=== PATIENT | female | born 1950 | race Caucasian/White ===

== ENCOUNTER 2018-06-04 17:32 | Emergency (ER) | payer MEDICARE, OTHER, SELFPAY ==
[2018-06-04 17:44] VITALS: BP 126/79; PULSE 65; RESP 18; O2SAT 97; BMI 29.7
--- NOTE | 2018-06-04 19:14 | ED.WOUNDLAC ---
HPI - Wound/Laceration General Chief Complaint: Wound/Laceration Stated Complaint: PAIN IN INCISION SITE Time Seen by Provider: 06/04/18 18:38 Source: patient Mode of arrival: ambulatory Limitations: no limitations History of Present Illness HPI narrative: Patient is a 67-year-old female. 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 Post resection performed at [facility]. Currently undergoing chemotherapy. Patient states that she has been diagnosed with a seroma in the surgical area. She states that it has been ?drained? multiple times in the past. She is here because on Tuesday she is noticed pain which is sharp in nature and redness over her right inguinal area. No fevers. States that has worsened since then. No urinary symptoms. No vaginal bleeding. No change of bowel habits. No abdominal pain. Patient came to the emergency department for evaluation. Related Data Home Medications Medication Instructions Recorded Confirmed diltiazem HCl #0 05/22/17 04/12/18 rivaroxaban [Xarelto] #0 05/22/17 04/12/18 Previous Rx's Medication Instructions Recorded estradiol 0.01% (0.1 mg/gram) See Label Instructions .ROUTE 04/14/18 vaginal cream DAILY #42.5 gram cephalexin [Keflex] 500 mg PO QID 10 Days #40 cap 06/04/18 fluconazole [Diflucan] 100 mg PO DAILY #2 tab 06/04/18 Allergies Allergy/AdvReac Type Severity Reaction Status Date / Time aspirin [ASPIRIN] Allergy Mild hives Verified 06/04/18 17:44 codeine [CODEINE] Allergy Mild hives Verified 06/04/18 17:44 Sulfa (Sulfonamide Allergy Mild hives Verified 06/04/18 17:44 Antibiotics) [SULFA (SULFONAMIDE ANTIBIOTICS)] Review of Systems Constitutional Denies chills, Denies fatigue, Denies fever(s), Denies lethargy, Denies malaise and Denies weakness ENT Ears, Nose, Mouth, and Throat: Denies vertigo and Denies dizziness Cardiovascular Denies chest pain and Denies dyspnea Respiratory Denies dyspnea Gastrointestinal Gastrointestinal: Denies abdominal pain, Denies nausea and Denies vomiting Genitourinary Denies dysuria, Denies flank pain and Denies vaginal discharge Comments: Redness of the skin of the right inguinal region Musculoskeletal Denies back pain, Denies myalgias and Denies arthralgias Integumentary/Breasts Comments: Redness the skin of the right inguinal region Neurologic Denies vertigo, Denies dizziness and Denies weakness Endocrine Denies fatigue Hematologic/Lymphatic Denies easy bleeding and Denies easy bruising [facility] Medical History Squamous cell carcinoma (Acute) Surgical History History of melanoma excision (Resolved) History of tonsillectomy (Resolved) Status post cholecystectomy (Resolved) Status post surgery (Resolved 11/01/17) Social History Smoking Status: Former smoker Exam Initial Vital Signs Initial Vital Signs: Vital Signs Pulse Rate 65 06/04/18 17:44 Respiratory Rate 18 06/04/18 17:44 Blood Pressure 126/79 06/04/18 17:44 Pulse Oximetry 97 06/04/18 17:44 Const General: cooperative, healthy appearing, comfortable, well developed, well groomed, No acute distress, No frail appearing and No ill appearing Orientation: alert, awake and oriented x3 Resp Effort & Inspection: normal respiratory effort Cardio Rate: regular rate Skin Other: Patient with a approximately 15 cm area of erythema in the right inguinal region. Does involve the right labia. Does not extend above the ASIS. No blisters. No vesicles. No pustules. No lacerations. Neuro General: alert, awake and oriented x3 Extrem General: normal to inspection, full ROM and capillary refill normal Psych Appearance: grossly normal and well kempt Course Orders Ordered: ED Orders 06/04/18 19:55 Basic Metabolic Panel Stat C-Reactive Protein Quant Stat Complete Blood Count AUTO DIFF Stat Erythrocyte Sedimentation Rate Stat Lactate (Lactic Acid) Stat Procalcitonin Stat 06/04/18 20:55 Blood Culture Stat Discontinued Medications Acetaminophen (Tylenol) 650 mg PO NOW ONE Stop: 06/04/18 21:05 Last Admin: 06/04/18 21:06 Dose: 650 mg Cephalexin HCl (Keflex) 500 mg PO NOW ONE Stop: 06/04/18 20:42 Last Admin: 06/04/18 21:06 Dose: 500 mg Vital Signs - 8 hr 06/04/18 17:44 06/04/18 19:59 06/04/18 21:24 Pulse Rate 65 78 68 Respiratory Rate 18 15 18 Blood Pressure 126/79 120/77 Blood Pressure [Right Arm] 124/76 Pulse Oximetry 97 98 97 MDM - Wound/Laceration Medical Records Attestation: I reviewed the patient's medical records. Lab Data Attestation: I reviewed the patient's lab results. Result diagrams: 06/04/18 19:55 06/04/18 19:55 Lab Results 06/04/18 06/04/18 06/04/18 Range/Units 19:55 19:55 19:55 WBC 3.8 L (4.5-11.0) X10^3/uL RBC 4.16 (4.0-5.2) X10^6/uL Hgb 12.9 (12.0-16.0) g/dL Hct 38.1 (36-46) % MCV 91.6 (80-100) fL MCH 31.0 (26-34) PG MCHC 33.8 (30-36) % RDW 12.6 (11.6-14.8) % Plt Count 223 (150-400) X10^3/uL Neut % (Auto) 76.0 H (50-75) % Lymph % (Auto) 16.4 L (25-40) % Blair % (Auto) 5.2 (3-14) % Eos % (Auto) 1.7 L (2-4) % Baso % (Auto) 0.7 (0-2) % Neut # (Auto) 2900 L (8277-1181) /uL ESR (0-20) MM/HR Sodium 141 (137-145) mmol/L Potassium 3.9 (3.4-5.1) mmol/L Chloride 101 (98-107) mmol/L Carbon Dioxide 30 (22-32) mmol/L BUN 12 (7-17) mg/dL Creatinine 0.70 (0.52-1.04) mg/dL Estimated GFR > 60.0 (>60) mL/min BUN/Creatinine Ratio 17.1 (6-22) Glucose 101 (80-110) mg/dL Lactate 0.9 (0.7-2.1) mmol/L Calcium 9.3 (8.4-10.2) mg/dL C-Reactive Protein (<1.0) mg/dL Procalcitonin (<0.5) ng/mL 06/04/18 06/04/18 06/04/18 Range/Units 19:55 19:55 19:55 WBC (4.5-11.0) X10^3/uL RBC (4.0-5.2) X10^6/uL Hgb (12.0-16.0) g/dL Hct (36-46) % MCV (80-100) fL MCH (26-34) PG MCHC (30-36) % RDW (11.6-14.8) % Plt Count (150-400) X10^3/uL Neut % (Auto) (50-75) % Lymph % (Auto) (25-40) % Blair % (Auto) (3-14) % Eos % (Auto) (2-4) % Baso % (Auto) (0-2) % Neut # (Auto) (7026-0639) /uL ESR 56 H (0-20) MM/HR Sodium (137-145) mmol/L Potassium (3.4-5.1) mmol/L Chloride (98-107) mmol/L Carbon Dioxide (22-32) mmol/L BUN (7-17) mg/dL Creatinine (0.52-1.04) mg/dL Estimated GFR (>60) mL/min BUN/Creatinine Ratio (6-22) Glucose (80-110) mg/dL Lactate (0.7-2.1) mmol/L Calcium (8.4-10.2) mg/dL C-Reactive Protein 3.5 H (<1.0) mg/dL Procalcitonin < 0.05 (<0.5) ng/mL MDM Narrative Medical decision making narrative: Patient is nontoxic appearing. Is not neutropenic. Is afebrile. Does have an area what appears to be cellulitis in her right inguinal region. I discussed the case with Dr. Clayton regional facilities manager for Oncology at [facility]. He states that since the patient looks well, is not neutropenic, is afebrile that a trial of oral Keflex is warranted in this situation. Patient was given her 1st dose of Keflex here in the emergency department. She was given a prescription for this to start taking tomorrow morning. She was informed that she needed to contact her oncologist tomorrow for a follow-up. I feel that there is no abscess involved. I feel that the fluctuance under the area of erythema is the seroma which is known to exist. Will hold on incision and drainage for now. Patient was given return precautions. She expressed understanding and agreement with plan. Discharge Plan Departure Patient Disposition: Home Clinical Impression: Cellulitis Discharge Date/Time: 06/04/18 21:24 Interventions: ED Discharge Assessment Last Done: 06/04/18 21:24 Instructions: DI for Cellulitis -- Adult Activity Restrictions/Additional Instructions: You were given your 1st dose of antibiotics here in the emergency department. Your next dose will be tomorrow morning. Tomorrow morning you do need to contact your oncologist office to schedule a follow-up appointment. Return to the emergency department for any new symptoms, worsening symptoms, fever or any other concerning symptoms. Prescriptions: New fluconazole [Diflucan] 100 mg tablet 100 mg PO DAILY Qty: 2 RF: 0 cephalexin [Keflex] 500 mg capsule 500 mg PO QID 10 Days Qty: 40 RF: 0 No Action diltiazem HCl 30 mg Tablet Qty: 0 RF: 0 rivaroxaban [Xarelto] 10 mg Tablet Qty: 0 RF: 0 estradiol [Estrace] 0.01 % (0.1 mg/gram) cream See Label Instructions .ROUTE DAILY Qty: 42.5 RF: 1
[2018-06-04 19:59] VITALS: BP 124/76; PULSE 78; RESP 15; O2SAT 98
[2018-06-04 20:12] LABS: Add Manual Diff / Slide Review NO; Basophils Percent Auto 0.7 % (0-2); Eosinophils Percent Auto 1.7 % (2-4); Hematocrit 38.1 % (36-46); Hemoglobin 12.9 g/dL (12.0-16.0); Lymphocytes Percent Auto 16.4 % (25-40); Mean Corpuscular HGB Conc 33.8 % (30-36); Mean Corpuscular Volume 91.6 fL (80-100); Monocytes Percent Auto 5.2 % (3-14); Neutrophils Absolute Auto 2900 /uL (3000-5900); Platelet Count 223 X10^3/uL (150-400); Red Blood Cell Count 4.16 X10^6/uL (4.0-5.2); Red Cell Distribution Width 12.6 % (11.6-14.8); White Blood Cell Count 3.8 X10^3/uL (4.5-11.0)
[2018-06-04 20:22] LABS: Lactate (Lactic Acid) 0.9 mmol/L (0.7-2.1)
[2018-06-04 20:23] LABS: BUN Creatinine Ratio 17.1 (6-22); Blood Urea Nitrogen 12 mg/dL (7-17); Calcium 9.3 mg/dL (8.4-10.2); Carbon Dioxide 30 mmol/L (22-32); Chloride 101 mmol/L (98-107); Estimated Glomerular Filt Rate > 60.0 mL/min (>60); Glucose 101 mg/dL (80-110); HEMOLYSIS < 15 (0-50); Potassium 3.9 mmol/L (3.4-5.1); Sodium 141 mmol/L (137-145)
[2018-06-04 20:37] LABS: C-Reactive Protein Quant 3.5 mg/dL (<1.0)
--- NOTE | 2018-06-04 20:40 | PC.NURSE ---
Pt undergoing chemotherapy for vulvar cancer. 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 The area is reddened, swollen, and a hard nodule is palpable and painful to the patient. Patient states when this happens, she usually just has it drained.
[2018-06-04 20:47] LABS: Erythrocyte Sedimentation Rate 56 MM/HR (0-20)
[2018-06-04 20:50] LABS: Procalcitonin < 0.05 ng/mL (<0.5)
[2018-06-04] MEDS: cephALEXin 250 MG CAPSULE 500 MG PO (21:06)
[2018-06-04] MEDS: ACETAMINOPHEN 325 MG TABLET 650 MG PO (21:06)
[2018-06-04 21:24] VITALS: BP 120/77; PULSE 68; RESP 18; O2SAT 97
== END 2018-06-04 21:24 | disposition home or self-care (01) ==
PROVIDERS: Emergency Provider Emergency Medicine; Family Provider Internal Medicine Geriatric Medicine; PCP Internal Medicine Geriatric Medicine
DX: L03.314 Cellulitis of groin (principal)
CPT/HCPCS: 36415; 36591; 80048; 83605; 84145; 85025; 85651; 86140; 87040; 99283

== ENCOUNTER → 2019-01-08 12:12 | Outpatient (CLI) | payer MEDICARE, OTHER, SELFPAY ==
--- NOTE | 2019-01-08 12:13 | DI.US.S_ITS ---
PROCEDURE: US ABDOMEN LIMITED INDICATIONS: LEFT GROIN LUMP; HISTORY VULVAR CANCER TECHNIQUE: Real-time focused scanning was performed of the abdomen, with image documentation. COMPARISON: [facility], [place], PELVIC COMPLETE, 10/03/2017, 17:12. [facility], US, PELVIC COMPLETE, 05/22/2017, 0:38. FINDINGS: At the area of clinical concern, there is a left groin mass seen that measures 4.6 x 2.8 x 3.5 cm. This mass demonstrates a solid, irregular appearance and is hypoechoic. There is associated mildly increased vascularity seen. No change is seen with Valsalva maneuver. IMPRESSION: These imaging findings are worrisome for a neoplastic mass within the left groin. This lesion is felt unlikely to represent a hernia. Please consider a dedicated CT study with IV contrast for further evaluation. Dictated by: Hung Ojeda M.D. on 01/08/2019 at 12:10 Approved by: Hung Ojeda M.D. on 01/08/2019 at 12:12
== END ==
PROVIDERS: PCP Internal Medicine Geriatric Medicine; Visit Provider Obstetrics & Gynecology
DX: R19.04 Left lower quadrant abdominal swelling, mass and lump (principal); R10.32 Left lower quadrant pain; Z85.44 Personal history of malignant neoplasm of other female genital organs
CPT/HCPCS: 76705